=== PATIENT | male | born 2000 | race Caucasian/White ===

== ENCOUNTER 2020-05-24 16:48 | Emergency (ER) | payer OTHER ==
[2020-05-24 16:53] VITALS: BP 150/93; PULSE 94; TEMP 98; BMI 54.6
[2020-05-24] MEDS ORDERED: KETOROLAC TROMETHAMINE 30 MG/1 ML VIAL IM ONE (17:14)
[2020-05-24] MEDS ORDERED: LIDOCAINE VISCOUS 2% ORAL/TOP 20 ML UNIT-DOSE CUP MM ONE (17:15)
[2020-05-24] MEDS ORDERED: KETOROLAC TROMETHAMINE 30 MG/1 ML VIAL ONE (17:18)
[2020-05-24] MEDS ORDERED: LIDOCAINE VISCOUS 2% ORAL/TOP 20 ML UNIT-DOSE CUP ONE (17:18)
--- NOTE | 2020-05-24 17:20 | PDOC ---
History of Present Illness - General Chief Complaint: Toothache Stated Complaint: HEADACHE, TOOTH PAIN Time Seen by Provider: 05/24/20 17:02 History Source: Patient Exam Limitations: No Limitations - History of Present Illness Initial Comments: 05/24/20 17:16 19-year-old male past medical history of asthma presenting with left lower wisdom tooth pain. Patient states that he was seen by oral surgeon who told him that his wisdom tooth is impacted and that it needs to be extracted but unfortunately the earliest appointment he had for extraction was in June. Patient states that he was taking Aleve and Tylenol with relief but today the pain became worse and Aleve and Tylenol did not relieve it. Patient denies any problems eating swallowing or chewing as well as any gum swelling or trouble breathing. Pt otherwise denies: fevers, chills, syncope, lightheadedness, dizziness, headaches, neck pain, chest pain, shortness of breath, palpitations, back pain, abdominal pain, nausea, vomiting, diarrhea, constipation. Past History - Medical History Allergies/Adverse Reactions: Allergies Allergy/AdvReac Type Severity Reaction Status Date / Time No Known Allergies Allergy Verified 05/24/20 16:53 Home Medications: Ambulatory Orders No Home Medications 0 dose .ROUTE UTDICT 01/31/13 Chlorhexidine Gluconate [Peridex -] 15 ml MM BID #1 bottle 05/24/20 Ibuprofen [Ibu] 600 mg PO TID 10 Days #30 tablet 05/24/20 Lidocaine 2% Viscous Oral [Xylocaine 2% Viscous Oral -] 20 ml PO Q6H 10 Days #1 bottle 05/24/20 Asthma: Yes COPD: No - Psycho-Social/Smoking History Smoking Status: No Smoking History: Never smoked Number of Cigarettes Smoked Daily: 0 - Substance Abuse Hx (Audit-C & DAST Scrn) How often the patient has a drink containing alcohol: Never Score: In Men: 4 or > Positive; In Women: 3 or > Positive: 0 Screen Result (Pos requires Nsg. Audit-10AR): Negative *Physical Exam - Vital Signs Last Vital Signs Temp Pulse Resp BP Pulse Ox 98 F 94 H 18 150/93 100 05/24/20 16:51 05/24/20 16:51 05/24/20 16:51 05/24/20 16:51 05/24/20 16:51 - Physical Exam 05/24/20 17:17 Gen: AAOx 3, no acute distress, comfortable, no signs of respiratory distress HENT: atraumatic, normocephalic with no laceration or contusion. Nasal mucosa without erythema. Oropharynx without erythema or exudates. Mucous membranes moist. Dental: Left lower wisdom tooth impacted with tooth breaching the gums no surrounding erythema or signs of abscess EYES: PERRL, EOM intact, conjunctiva pink NECK: supple; trachea midline; no JVD, no lymphadenopathy, or thyromegaly CV: RRR no murmurs, gallops, or rubs. CHEST: CTA b/l no wheezing, rales or rhonchi ABD: +BS/ND. no TTP; soft, no rebound, no guarding EXTREMITY: no cyanosis or erythema. 2+ dorsalis pedis, posterior tibial, and radial pulse. No pedal edema; no calf swelling or tenderness SKIN: no rash, warm and dry, no diaphoresis HEME: no purpura or ecchymosis NEURO: normal speech, CN II-XII intact, sensation intact, normal gait, no cerebellar deficits MS: 5/5 strength in all extremities, FROM intact in all extremities. Medical Decision Making - Medical Decision Making 05/24/20 17:17 19-year-old male with left lower wisdom tooth impacted Vital signs stable Administer Toradol viscous lidocaine for symptomatic relief Patient reports relief of pain with meds We will send home on ibuprofen Peridex and viscous lidocaine Patient to follow-up with oral surgery and/or dental clinic Patient appears well and safe for stable discharge Supportive care instructions explained and given to pt. Reasons to return emergently to ER explained and given. Importance of follow up with PMD and other specialists as indicated stressed to pt. Pt verbalized understanding of instructions. Pt to follow up with PMD in 2 days. Discharge - Discharge Information Problems reviewed: Yes Clinical Impression/Diagnosis: Pain, dental Condition: Stable Disposition: HOME - Additional Discharge Information Prescriptions: Ibuprofen [Ibu] 600 mg PO TID 10 Days #30 tablet Chlorhexidine Gluconate [Peridex -] 15 ml MM BID #1 bottle Lidocaine 2% Viscous Oral [Xylocaine 2% Viscous Oral -] 20 ml PO Q6H 10 Days #1 bottle - Follow up/Referral Referrals: Castillo Arana MD [Primary Care Provider] - - Patient Discharge Instructions Patient Printed Discharge Instructions: DI for Dental Pain - Post Discharge Activity
== END 2020-05-24 17:34 | disposition home or self-care (01) ==
LOC: JERFT 16:48
PROC: 3E023GC Introduction of Other Therapeutic Substance into Muscle, Percutaneous Approach (ICD-10-PCS; principal; 2020-05-24)
DX: K08.89 Other specified disorders of teeth and supporting structures (principal)
CPT/HCPCS: 99284-25